=== PATIENT | female | born 1990 | race Caucasian/White ===

== ENCOUNTER 2022-12-23 16:48 | Outpatient (REF) | payer OTHER, SELFPAY ==
--- NOTE | ~2022-12-23 | US_ITS ---
EXAMINATION: US RETROPERITONEAL LIMITED (RENAL ONLY) CLINICAL INFORMATION: Acute cystitis. COMPARISON: None available. TECHNIQUE: Sonographic evaluation of both kidneys. FINDINGS: RIGHT KIDNEY: 13.1 x 5.8 x 7.4 cm (SAG x AP x TRV). The kidney is normal in size, contour, and echogenicity. Renal cortical thickness is normal. No calculi or focal parenchymal lesions. No hydronephrosis. LEFT KIDNEY: 12.4 x 5.8 x 5.5 cm (SAG x AP x TRV). The kidney is normal in size, contour, and echogenicity. Renal cortical thickness is normal. No calculi or focal parenchymal lesions. No hydronephrosis. US/US renal BI IMPRESSION: Normal appearance of the kidneys.
== END 2022-12-23 16:49 | disposition home or self-care (01) ==
LOC: HO.US 16:48
PROVIDERS: PCP Registered Nurse; Visit Provider Registered Nurse
DX: N30.00 Acute cystitis without hematuria (principal)
CPT/HCPCS: 76775

== ENCOUNTER 2023-06-30 11:50 | Outpatient (REF) | payer OTHER, SELFPAY ==
[2023-07-01 13:28] LABS: Influenza A PCR NEGATIVE (Negative); Influenza B PCR NEGATIVE (Negative); Resp Syncy Virus RNA Qual PCR NEGATIVE (Negative); SARS COV2 PCR INHOUSE NEGATIVE (Negative)
== END 2023-06-30 11:51 | disposition home or self-care (01) ==
LOC: HO.HHCLNP 11:50
PROVIDERS: Visit Provider Nurse Practitioner Family
DX: Z11.52 Encounter for screening for COVID-19 (principal); Z20.822 Contact with and (suspected) exposure to COVID-19; R05.9 Cough, unspecified
CPT/HCPCS: 0241U

== ENCOUNTER 2023-07-14 | Outpatient (REF) | payer OTHER, SELFPAY ==
[2023-07-15 12:42] LABS: Influenza A PCR NEGATIVE (Negative); Influenza B PCR NEGATIVE (Negative); Resp Syncy Virus RNA Qual PCR NEGATIVE (Negative); SARS COV2 PCR INHOUSE NEGATIVE (Negative)
== END 2023-07-14 00:01 | disposition home or self-care (01) ==
LOC: HO.HHCLNP
PROVIDERS: Visit Provider Nurse Practitioner Family
DX: Z11.52 Encounter for screening for COVID-19 (principal); Z20.822 Contact with and (suspected) exposure to COVID-19; R05.9 Cough, unspecified
CPT/HCPCS: 0241U; 87070

== ENCOUNTER 2024-09-07 10:44 | Outpatient (REF) | payer OTHER, SELFPAY ==
[2024-09-07 11:30] LABS: MANUAL DIFF FLAG NO
[2024-09-07 11:42] LABS: Basophils Percent Auto 0.4 % (0-2); Eosinophils Absolute Auto 0.1 X10*3/uL (0.0-0.4); Eosinophils Percent Auto 1.8 % (0-4); Hematocrit 39.6 % (37.0-47.0); Hemoglobin 12.7 g/dl (12.0-16.0); Imm Gran Abs Auto 0.02 X10*3/uL (0.00-0.03); Imm Gran Pct Auto 0.3 % (0.0-0.4); Lymphocytes Absolute Auto 2.5 X10*3/uL (1.2-4.9); Lymphocytes Percent Auto 35.6 % (20-40); Mean Corpuscular HGB Conc 32.1 g/dl (31.0-35.0); Mean Corpuscular Hemoglobin 26.3 pg (27.0-33.0); Mean Platelet Volume 9.5 fL (9.4-12.3); Monocytes Absolute Auto 0.4 X10*3/uL (0.1-1.2); Monocytes Percent Auto 5.6 % (2-11); Neutrophils Percent Auto 56.3 % (45-73); Platelet Count 425 X10*3/uL (160-400); Red Blood Count 4.83 X10*6/uL (4.20-5.50); Red Cell Distribution Width 15.5 % (11.0-16.0); White Blood Count 7.1 X10*3/uL (4.8-10.8)
[2024-09-07 11:50] LABS: Estimated Average Glucose 88 mg/dL; Hemoglobin A1C 93.3798 umol/L; Hemoglobin A1c % 4.7 % (<6.0); Total Hemoglobin (HGBA1C) 3357.3971 umol/L
[2024-09-07 12:27] LABS: Anion Gap 12 (12-20); Blood Urea Nitrogen 5 mg/dL (9-16); Calcium 9.2 mg/dL (8.4-10.2); Carbon Dioxide 26 mmol/L (22-29); Chloride 103 mmol/L (96-108); Cholesterol 168 mg/dL (<200); Estimated Glomerular Filt Rate > 60; Glucose Random 83 mg/dL (60-115); HDL Cholesterol 42 mg/dL (>40); LDL Cholesterol Calculated 111 mg/dL (<100); Potassium 3.9 mmol/L (3.3-5.1); Sodium 137 mmol/L (135-145); Triglycerides 76 mg/dL (<150)
[2024-09-07 12:43] LABS: HBS Num1 2.52 mIU/mL (0-7.99); HBc Num1 0.13 S/CO (0.00-0.79); HBsAGNum1 0.43 S/CO (0.00-0.99); Hepatitis B Core Antibody Nonreactive (Nonreactive); Hepatitis B Surface Antigen Negative (Negative); ~HepC Num1 0.08 S/CO (0.00-0.79); ~Hepatitis B Surface Antibody NONREACTIVE (Nonreactive); ~Hepatitis C Antibody Nonreactive (Nonreactive)
--- OUTSIDE RECORDS SUMMARY | 2024-09-07 12:49 | XMS_ITS | Encounter Summary ---
Author Organization [employer] Address [address] [place] [address] 7t [place] [address] Care Team Providers Care Rn Family Practice Name Role Phone Aniyah Schulte Primary Care Provider [phone] Maria Beckham MD Primary Care Pro vider Daisy Clark NP Primary Care Provider [phone] Urszula Muñiz DOCUMENT CONTROL MANAGER Primary Care Provider [phone] Reason for Visit * Reason Comments Med Refill Encounter Details Date Type Department Care Team ([facility] Contact Info) Description 03/20/2023 Refill [facility] [address] [place] [address] Aniyah Schulte [address] Dept [place] [address] Moderate episode of recurrent major depressive disorder (CMS/HCC) Social History Tobacco Use Types Packs/Day Years Used Date Smoking Tobacco: Some Days Cigarettes Passive Smoke Exposure: Current Smokeless Tobacco: Never Comments:Smokes 1 cig every other day. Alcohol Use Standard Drinks/Week Comments Yes 0 (1 standard drink = 0.6 oz pur e alcohol) Socially Depression Answer Date Recorded Patient Health Questionnaire-9 Score 6 02/09/2023 Depression Answer Date Recorded Patient Health Questionnaire-2 Score 0 02/09/2023 Comments Unknown Sex and Gender Information Value Date Recorded Sex Assigned at Female 06/09/2022 10:40 AM EDT Legal Sex Female 10:40 AM EDT Gender Identity Choose not to disclose 10:40 AM EDT Sexual Orientation Straight 06/09/2022 10 :40 AM EDT documented as of this encounter Plan of Treatment Upcoming Encounters Date Type Department Care Team ([facility] Contact Info) Description 09/14/2024 10:00 AM EST Office Visit [facility] MEDIC[facility] [address] [place] [address] Urszula Muñiz FNP [address] [place] [address] documented as of this encounter Visit Diagnoses Diagnosis Moderate episode of recurrent major depressive disorder (CMS/HCC) documented in this encounter Additional Health Concerns Assessment Noted Time PHQ-9 Depression Total Score: 6 02/10/20 23 3:31 PM EDT documented as of this encounter Care Teams Rn Family Practice Relationship Specialty Start Date End Date Aniyah Schulte FNP PCP - General Family Medicine 11/29/21 05/13/23 Maria Beckham MD [address] [place] [address] PCP - General Internal Medicine 05/14/23 05/03/24 Daisy Clark NP [address] [place] [address] PCP - General Family Medicine 05/04/24 08/25/24 Urszula Muñiz FNP [address] [place] [address] PCP - General Family Medicine 08/26/24 documented as of this encounter
--- OUTSIDE RECORDS SUMMARY | 2024-09-07 12:49 | XMS_ITS | Encounter Summary ---
Author Organization [employer] Address [address] [place] [address] [place] [address] Care Team Providers Care Nurse Emergency Room Name Role Phone Aniyah Schulte MATHEMATICAL PHYSICIST Primary Care Provider [phone] Maria Beckham MD Primary Care Pro vider Daisy Clark NP Primary Care Provider [phone] Urszula Muñiz MATHEMATICAL PHYSICIST Primary Care Provider [phone] Reason for Visit * Reason Comments Med Refill Encounter Details Date Type Department Care Team (Late st Contact Info) Description 02/05/2023 Refill [facility] MED[facility] [address] [place] [address] Aniyah Schulte [address] Dept [place] [address] Seasonal allergic rhinitis, unspecified trigger; Moderate episode of recurrent major depressive disorder [...] Orientation Straight 06/09/2022 10 :40 AM EDT COVID-19 Exposure Response Date Recorded In the last 10 days, have yo u been in contact with someone who was confirmed or suspected to have Coronavirus/COVID-19? No / Unsure 01/09/2023 3:37 PM EDT documented as of this encounter Plan of Treatment Upcoming Encounters Date Type Department Care Team (Late st Contact Info) Description 09/14/2024 10:00 AM EST Office Visit [facility] MED[facility]INE [address] [place] [address] Urszula Muñiz FNP [address] [place] [address] documented as of this encounter Visit Diagnoses Diagnosis Seasonal allergic rhinitis, unspecified trigger Moderate episode of recurrent major depressive disorder (CMS/HCC) documented in this encounter Care Teams Nurse Emergency Room Relationship Specialty Start Date End Date Aniyah Schulte FNP PCP - General Family Medicine 11/29/21 05/13/23 Maria Beckham MD [address] [place] [address] PCP - General Internal Medicine 05/14/23 05/03/24 Daisy Clark NP [address] [place] [address] PCP - General Family Medicine 05/04/24 08/25/24 Urszula Muñiz FNP [address] [place] [address] PCP - General Family Medicine 08/26/24 documented as of this encounter
--- OUTSIDE RECORDS SUMMARY | 2024-09-07 12:49 | XMS_ITS | Clinical Summary ---
Author Organization [facility] Facility Address [address] [address] Care Team Providers Care Manager House Name Role Phone Aniyah Davidson Primary Care Provider Ramandeep vailable Social History Tobacco Use Types Packs/Day Years Used Date Smoking Tobacco: Never Assessed Comments Unknown Sex and Gender Information Value Date Recorded Sex Assigned at Not on file Legal Sex Female 3:14 PM EST Gender Identity Not on file Sexual Orientation Not on file Plan of Treatment Health Maintenance Due Date Last Done Comments Hepatitis B Vaccine (1 of 3 - 19+ 3-dose series) 12/31/2006 Influenza Vaccine (#1) 2024 Pneumococcal Vaccine: Pediat rics (0 to 5 Years) and At-Risk Patients (6 to 64 Years) Aged Out No longer eligi ble based on patient's age to complete this topic Care Teams Manager House Relationship Specialty Start Date End Date Aniyah Davidson FNP PCP - General 06/18/23
--- OUTSIDE RECORDS SUMMARY | 2024-09-07 12:49 | XMS_ITS | Encounter Summary ---
Author Organization [facility], Address [address] [place] [address] Phone Care Team Providers Care Clinical Implementation Specialist Name Role Phone Aniyah Davidson Primary Care Provider Ramandeep vailable Encounter Details Date Type Department Care Team (Late st Contact Info) Description 06/19/2023 Documentation Only [facility], [address] [place] [address] Aniyah Davidson FNP Social History Tobacco Use Types Packs/Day Years Used Date Smoking Tobacco: Never Assessed Comments Unknown Sex and Gender Information Value Date Recorded Sex Assigned at Not on file Legal Sex Female 3:14 PM EST Gender Identity Not on file Sexual Orientation Not on file documented as of this encounter Plan of Treatment Not on file documented as of this encounter Visit Diagnoses Not on filedocumented in this encounter Care Teams Clinical Implementation Specialist Relationship Specialty Start Date End Date Aniyah Davidson FNP PCP - General 06/18/23 documented as of this encounter
--- OUTSIDE RECORDS SUMMARY | 2024-09-07 12:49 | XMS_ITS | Encounter Summary ---
Author Organization [employer] Address [address] [facility] 7t [place] [address] Care Team Providers Care Supervisor Model Making Name Role Phone Aniyah Schulte ORGANIC LAB WORKER Primary Care Provider [phone] Maria Beckham MD Primary Care Pro vider Daisy Clark NP Primary Care Provider [phone] Urszula Muñiz ORGANIC LAB WORKER Primary Care Provider [phone] Reason for Visit * Reason Comments Med Refill Encounter Details Date Type Department Care Team (Late st Contact Info) Description 02/05/2023 Refill [facility] [address] [place] [address] Fabrice Park MD [address] [place] [address] Social History Tobacco Use Types Packs/Day Years [...] Description 09/14/2024 10:00 AM EST Office Visit [facility] [address] [place] [address] Urszula Muñiz FNP [address] [place] [address] documented as of this encounter Visit Diagnoses Not on filedocumented in this encounter Care Teams Supervisor Model Making Relationship Specialty Start Date End Date Aniyah Schulte FNP PCP - General Family Medicine 11/29/21 05/13/23 Maria Beckham MD [address] [place] [address] PCP - General Internal Medicine 05/14/23 05/03/24 Daisy Clark NP [address] [place] [address] PCP - General Family Medicine 05/04/24 08/25/24 Urszula Muñiz FNP [address] [place] [address] PCP - General Family Medicine 08/26/24 documented as of this encounter
--- OUTSIDE RECORDS SUMMARY | 2024-09-07 12:49 | XMS_ITS | Encounter Summary ---
Author Organization [employer] Address [address] [facility] 7 [place] [address] Care Team Providers Care Direct Mail Marketer Name Role Phone Aniyah Schulte Primary Care Provider [phone] Maria Beckham MD Primary Care Pro vider Daisy Clark NP Primary Care Provider [phone] Urszula Muñiz INTEGRATED LOGISTICS PROGRAMS DIRECTOR Primary Care Provider [phone] Reason for Visit * Reason Onset Date Comments Medication Question 03/24/2023 Encounter Details Date Type Department Care Team (Late st Contact Info) Description 03/24/2023 Telephone [facility] MED[facility] [address] [place] [address] Aniyah Schulte [address] Dept [place] [address] Medication Question Social History Tobacco Use Types Packs/Day Years Used Date Smoking Tobacco: Some Days Cigarettes Passive Smoke Exposure: Current Smokeless Tobacco: Never Comments:Smokes 1 cig every other day. Alcohol Use Standard Drinks/Week Comments Yes 0 (1 standard drink = 0.6 oz pur e alcohol) Socially Depression Answer Date Recorded Patient Health Questionnaire-9 Score 6 02/09/2023 Housing Stability Answer Date Recorded What is your housing situation today? I have yolandemarkie quintana 06/12/[address] you li ve. Do you have problems with any of the following? None of the above 06/12/2023 Food Insecurity Answer Date Recorded Within the past 12 months, y ou worried that your food would run out before you got money to buy more: Never True 06/12/2023 Within the past 12 months,th e food you bought just didn't last and you didn't have enough money to get more: Never True 10/2022 Transportation Answer Date Recorded In the past 12 months, has l ack of transportation kept you from medical appts, meetings, work or from getting things needed for daily living? No 06/12/2023 Utilities Answer Date Recorded In the past 12 months, has t he electric, gas, oil or water company threatened to shut off services in your home? Yes 05/19/2023 Depression Answer Date Recorded Patient Health Questionnaire-2 Score 0 02/09/2023 Comments Unknown Sex and Gender Information Value Date Recorded Sex Assigned at Female 06/09/2022 10:40 AM EDT Legal Sex Female 10:40 AM EDT Gender Identity Choose not to disclose 10:40 AM EDT Sexual Orientation Straight 06/09/2022 10 :40 AM EDT documented as of this encounter Miscellaneous Notes * Telephone Encounter - Marci Parker RN - 03/27/2023 10:31 AM EDT TC X1 to pt regarding message below. LVM to return call to nurses. * Telephone Encounter - Santy Morales - 03/24/2023 8:27 AM EDT Tc from aren at [facility] pharmacy calling in regards to lexapro 10 mg and hydroxyzine 50 mg , states can cause a med interaction and would like clarification. Please contact at [phone] documented in this encounter Plan of Treatment Upcoming Encounters Date Type Department Care Team (Late st Contact Info) Description 09/14/2024 10:00 AM EST Office Visit [facility] MEDIC[facility] [address] [place], [place] [phone] Urszula Muñiz FNP [address] [place] [address] documented as of this encounter Visit Diagnoses Not on filedocumented in this encounter Additional Health Concerns Assessment Noted Time PHQ-9 Depression Total Score: 6 02/10/20 23 3:31 PM EDT documented as of this encounter Care Teams Direct Mail Marketer Relationship Specialty Start Date End Date Aniyah Schulte FNP PCP - General Family Medicine 11/29/21 05/13/23 Maria Beckham MD [address] [place] [address] PCP - General Internal Medicine 05/14/23 05/03/24 Daisy Clark NP [address] [place] [address] PCP - General Family Medicine 05/04/24 08/25/24 Urszula Muñiz FNP [address] [place] [address] PCP - General Family Medicine 08/26/24 documented as of this encounter
--- OUTSIDE RECORDS SUMMARY | 2024-09-07 12:50 | XMS_ITS | Encounter Summary ---
Author Organization [employer] Address [address] [facility] 7t [place] [address] Care Team Providers Care Green Lumber Grader Name Role Phone Urszula Muñiz Primary Care Provider Reason for Referral * Consultation (Routine) - Pending Review Specialty Diagnoses / Procedures Referred By Jessie reynoso Referred To Contact Optometry Diagnoses Well adult health check Urszula Muñiz FNP [address] [place] [address] Phone: tel: fax: Referral ID Status Reason Start Date Expiration Date Visits Requested Visits Authorized [id number] Pending Review Specialty Services Required 09/07/2024 09/07/2025 1 1 Reason for Visit * Reason Comments Establish Care Encounter Details Date Type Department Care Team ([facility] st Contact Info) Description 09/07/2024 9:15 AM EST Office Visit [facility] [address] [place] [address] Urszula Muñiz FNP [address] [place] [address] [facility] adult health check (Primary Dx); Hypertension, unspecified type; Unprotected sexual intercourse Social History Tobacco Use Types Packs/Day Years Used Date Smoking Tobacco: Some Days Cigarettes Passive Smoke Exposure: Current Smokeless Tobacco: Never Tobacco Cessation:Ready to Q uit: Not Asked; Counseling Given: Not Answered Comments:Smokes 1 cig every other day. Alcohol Use Standard Drinks/Week Comments Yes 0 (1 standard drink = 0.6 oz pur e alcohol) Socially Depression Answer Date Recorded Patient Health Questionnaire-9 Score 4 09/07/2024 Patient Health Questionnaire-9 Score 4 09/07/2024 Last PHQ-9: Questionnaire Data Not on file 0 09/07/2024 Housing Stability Answer Date Recorded What is your housing situation today? I have yolande quitnana 09/07/[address] you li ve. Do you have problems with any of the following? None of the above 09/07/2024 Food Insecurity Answer Date Recorded Within the past 12 months, y ou worried that your food would run out before you got money to buy more: Never True 09/07/2024 Within the past 12 months,th e food you bought just didn't last and you didn't have enough money to get more: Never True Transportation Answer Date Recorded In the past 12 months, has l ack of transportation kept you from medical appts, meetings, work or from getting things needed for daily living? No 09/07/2024 Utilities Answer Date Recorded In the past 12 months, has t he electric, gas, oil or water company threatened to shut off services in your home? No 09/07/2024 Depression Answer Date Recorded Patient Health Questionnaire-2 Score 2 09/07/2024 Comments Unknown Sex and Gender Information Value Date Recorded Sex Assigned at Female 06/09/2022 10:40 AM EDT Legal Sex Female 10:40 AM EDT Gender Identity Choose not to disclose 10:40 AM EDT Sexual Orientation Straight 06/09/2022 10 :40 AM EDT documented as of this encounter Last Filed Vital Signs Vital Sign Reading Time Taken Comments Blood Pressure 160/112 09/07/2024 9:13 AM EST Pulse 76 09/07/2024 9:13 AM EST Temperature 36.2 ??C (97.1 ??F) 09/07/2024 9:07 AM ES T Respiratory Rate 20 09/07/2024 9:07 AM EST Oxygen Saturation 98% 09/07/2024 9:07 AM EST Inhaled Oxygen Concentration - - Weight 128 kg (281 lb 12.8 oz) 09/07/2024 9:07 A M EST Height 170.2 cm (5' 7 ) 09/07/2024 9:07 AM EST Body Mass Index 44.14 09/07/2024 9:07 AM EST documented in this encounter Plan of Treatment Upcoming Encounters Date Type Department Care Team (Late st Contact Info) Description 09/14/2024 10:00 AM EST Office Visit [facility] [address] [place] [address] Urszula Muñiz FNP [address] [place] [address] Pending Results Name Type Priority Associated Diagnoses Date /Time Lipid Panel, Standard Lab Routine Well adult health check 09/07/2024 10:46 AM EST Basic Metabolic Panel Lab Routine Well adult health check 09/07/2024 10:46 AM EST Scheduled Orders Name Type Priority Associated Diagnoses Orde r Schedule Chlamydia/N. Gonorrhoeae RNA, TMA, Urogenitial Microbiology Routine Well adult health check Ordered: 09/07/2024 Hepatitis C Antibody with Reflex to HCV, RNA, Quantitative, Real-Time PCR Lab Routine Well adult health check Expected: 09/07/2024, Expires: 09/07/2025 Hepatitis B Surface Antibody, Qualitative Lab Routine [facility] adult health check Expected: 09/07/2024 (Approximate), Expires: 09/07/2025 Hepatitis B Core Antibody, Total Lab Routine Well adult health check Expected: 09/07/2024 (Approximate), Expires: 09/07/2025 Hepatitis B surface antigen, EIA Lab Routine Well adult health check Expected: 09/07/2024 (Approximate), Expires: 09/07/2025 TSH W/Reflex to FT4 Lab Routine Well adult health check Expected: 09/07/2024 (Approximate), Expires: 09/07/2025 Scheduled Referrals Name Type Priority Associated Diagnoses Orde r Schedule Referral to Optometry Outpatient Referral Routine Well adult health check Expected: 09/07/2024 (Approximate), Expires: 09/07/2025 documented as of this encounter Procedures Procedure Name Priority Date/Time Associated Diagnosis Comments POCT , URINE Routine 09/07/2024 11:15 AM EST Unprotected sexual intercourse POCT URINALYSIS DIPSTICK Routine 09/07/2024 11:11 AM EST Hypertension, unspecified type CBC WITH AUTO DIFFERENTIAL Routine 09/07/2024 10:46 AM EST Well adult health check HEMOGLOBIN A1C Routine 09/07/2024 10:46 AM EST Well adult health check LIPID PANEL, STANDARD Routine 09/07/2024 10:46 AM EST Well adult health check BASIC METABOLIC PANEL Routine 09/07/2024 10:46 AM EST Well adult health check documented in this encounter Results * POCT Urine (09/07/2024 11:15 AM EST) Preg Test, Ur Negative Negative, Indeterminate, None Detected, Invalid, Specimen unsatisfactory for evaluation, Weakly Positive QC Media Lot # [id number] Lot# Expiration Date [id number] Urine 09/07/2024 11:1 5 AM EST [facility] POINT OF CARE TEST ENTER/EDIT ORDERABLES Final Result * POCT Urinalysis (09/07/2024 11:11 AM EST) Color, UA Yellow Clarity, UA Clear Glucose, UA Negative Bilirubin, UA Negative Ketones, UA Negative Spec Grav, UA 1.020 Blood, UA Negative Negative, None Detected pH, UA 7.0 Protein, UA Trace Urobilinogen, UA 0.2 Leukocytes, UA Negative Negative, Rare, Trace Nitrite, UA Negative Negative, None Detected QC Media Lot # [id number] Lot# Expiration Date [id number] Urine 09/07/2024 11:1 1 AM EST [facility] POINT OF CARE TEST ENTER/EDIT ORDERABLES Final Result * Hemoglobin A1c (09/07/2024 10:46 AM EST) Hemoglobin A1c 4.7 <6.0 % [facility] Comment:Hemoglobin A1C Refer ence Range Adults: 4.8 - 6.0 % Non diabetic: < 6.0 % Goal: < 7.0 %Additional Action Suggested: > 8.0 %Note: Hemoglobin A1c results are invalid for patients with abnormal amounts of HbF. Blood transfusions may impact the HbA1c concentration in the patient sample. Estimated Average Glucose 88 mg/dL [facility] Comment:eAG = Estimated ave rage glucose which is %A1C expressed asaverage glucose, using the formula of the B9E-GcyxstnOmptbmr Glucose study (ADAG), Diabetes Care, Vol.31,#8,Mar. 2007 Blood Venous blood specimen / Unknown 09/07/2024 10:46 AM EST 09/07/2024 11:25 AM EST us Urszula Muñiz STRAIGHT TRUCK DRIVER LAB BLOOD ORDERABLES Final Res ult [facility] [address] [place], [place] [phone] * (ABNORMAL) CBC auto differential (09/07/2024 10:46 AM EST) White Blood Count 7.1 4.8 - 10.8 X10*3/uL [facility] Red Blood Count 4.83 4.20 - 5.50 X10*6/uL [facility] Hemoglobin 12.7 12.0 - 16.0 g/dl [facility] Hematocrit 39.6 37.0 - 47.0 % [facility] Mean Corpuscular Volume 82.0 80.0 - 98.0 fL [facility] Mean Corpuscular Hemoglobin 26.3(L) 27.0 - 33.0 pg [facility] Mean Corpuscular HGB Conc 32.1 31.0 - 35.0 g/dl [facility] Red Cell Distribution Width 15.5 11.0 - 16.0 % [facility] Platelet Count 425(H) 160 - 400 X10*3/uL [facility] Mean Platelet Volume 9.5 9.4 - 12.3 fL [facility] Neutrophils Percent Auto 56.3 45 - 73 % [facility] Imm Gran Pct Auto 0.3 0.0 - 0.4 % [facility] Lymphocytes Percent Auto 35.6 20 - 40 % [facility] Monocytes Percent Auto 5.6 2 - 11 % [facility] Eosinophils Percent Auto 1.8 0 - 4 % [facility] Basophils Percent Auto 0.4 0 - 2 % [facility] NRBC Pct Auto 0.0 0.0 - 0.2 /100WBC [facility] Neutrophils Absolute Auto 4.0 2.0 - 8.3 x10*3/uL [facility] Imm Gran Abs Auto 0.02 0.00 - 0.03 X10*3/uL [facility] Lymphocytes Absolute Auto 2.5 1.2 - 4.9 X10*3/uL [facility] Monocytes Absolute Auto 0.4 0.1 - 1.2 X10*3/uL [facility] Eosinophils Absolute Auto 0.1 0.0 - 0.4 X10*3/uL [facility] Basophils Absolute Auto 0.0 0.0 - 0.2 X10*3/uL [facility] NRBC Abs Auto 0.000 0.0 - 0.012 X10*3/uL [facility] Blood Venous blood specimen / Unknown 09/07/2024 10:46 AM EST 09/07/2024 11:25 AM EST Urszula REILLY LAB BLOOD ORDERABLES Final Res ult Performing Organization Address City/State/[facility] Co de Phone Number [facility] [address] [place] [address] [phone] documented in this encounter Visit Diagnoses Diagnosis Well adult health check- Primary Unspecified general medical examination Hypertension, unspecified type Unprotected sexual intercourse Problems related to high-risk sexual behavior documented in this encounter Additional Health Concerns Assessment Noted Time PHQ-9 Depression Total Score: 4 09/07/19 25 9:14 AM EST documented as of this encounter Care Teams Green Lumber Grader Relationship Specialty Start Date End Date Urszula Muñiz FNP [address] [place] [phone] PCP - General Family Medicine 08/26/24 documented as of this encounter
--- OUTSIDE RECORDS SUMMARY | 2024-09-07 12:50 | XMS_ITS | Encounter Summary ---
Author Organization [email or web address] Address [address] [facility] 7t [place] [address] Care Team Providers Care Travel Attendants Name Role Phone Aniyah Schulte STONE POLISHER MACHINE Primary Care Provider [phone] Maria Beckham MD Primary Care Pro vider Daisy Clark NP Primary Care Provider +- Urszula Muñiz STONE POLISHER MACHINE Primary Care Provider [phone] Encounter Details Date Type Department Care Team ([facility] Contact Info) Description 07/28/2022 Orders Only [facility] [address] [place] [address] Ara Batista LPN Social History Tobacco Use Types Packs/Day Years [...] was confirmed or suspected to have Coronavirus/COVID-19? Yes 07/14/2022 3:20 PM EST documented as of this encounter Plan of Treatment Upcoming Encounters Date Type Department Care Team ([facility] Contact Info) Description 09/14/2024 10:00 AM EST Office Visit [facility] MEDICINE [address] [place] [address] Urszula Muñiz FNP [address] [place], [place] [phone] documented as of this encounter Visit Diagnoses Not on filedocumented in this encounter Care Teams Travel Attendants Relationship Specialty Start Date End Date Aniyah Schulte FNP PCP - General Family Medicine 11/29/21 05/13/23 Maria Beckham MD [address] [place] [address] PCP - General Internal Medicine 05/14/23 05/03/24 Daisy Clark NP [address] [place] [address] PCP - General Family Medicine 05/04/24 08/25/24 Urszula Muñiz FNP [address] [place] [address] PCP - General Family Medicine 08/26/24 documented as of this encounter
--- OUTSIDE RECORDS SUMMARY | 2024-09-07 12:50 | XMS_ITS | Encounter Summary ---
Author Organization [employer] Address [address] [facility] 7t [place] [address] Care Team Providers Care Cardiac Surgeon Name Role Phone Aniyah Schulte LABORATORY HELPER Primary Care Provider [phone] Maria Beckham MD Primary Care Pro vider Daisy Clark NP Primary Care Provider [phone] Urszula Muñiz LABORATORY HELPER Primary Care Provider [phone] Reason for Visit * Reason Comments Med Refill Encounter Details Date Type Department Care Team ([facility] Contact Info) Description 12/15/2022 Refill [facility] [address] [place] [address] Lelo Black, ANP [address] [place] [address] Social History Tobacco Use Types Packs/Day Years Used Date Smoking Tobacco: Some Days Cigarettes Passive Smoke Exposure: Current Smokeless Tobacco: Never Alcohol Use Standard Drinks/Week Comments Yes 0 (1 standard drink = 0.6 oz pur e alcohol) Socially Comments Unknown Sex and Gender Information Value [...] suspected to have Coronavirus/COVID-19? No / Unsure 12/16/2022 5:49 PM EDT documented as of this encounter Plan of Treatment Upcoming Encounters Date Type Department Care Team ([facility] Contact Info) Description 09/14/2024 10:00 AM EST Office Visit [facility] MEDICINE [address] [place] [address] Urszula Muñiz FNP [address] [place] [address] documented as of this encounter Visit Diagnoses Not on filedocumented in this encounter Care Teams Cardiac Surgeon Relationship Specialty Start Date End Date Aniyah Schulte FNP PCP - General Family Medicine 11/29/21 05/13/23 Maria Beckham MD [address] [place] [address] PCP - General Internal Medicine 05/14/23 05/03/24 Daisy [place] [address] PCP - General Family Medicine 05/04/24 08/25/24 Urszula Muñiz FNP [address] [place] [address] PCP - General Family Medicine 08/26/24 documented as of this encounter
--- OUTSIDE RECORDS SUMMARY | 2024-09-07 12:50 | XMS_ITS | Encounter Summary ---
Author Organization [employer] Address [address] [facility] [address] 7[address] [place] [address] Care Team Providers Care Dethistler Operator Name Role Phone Urszula Muñiz INSTRUCTOR PHYSICAL Primary Care Provider [phone] Reason for Visit * Reason Onset Date Comments Chart Prep 09/01/2024 Encounter Details Date Type Department Care Team (Late st Contact Info) Description 09/01/2024 Telephone [facility] MEDICINE [address] [place] [address] Manasa Tapia MA Chart Prep Social History Tobacco Use Types Packs/Day Years [...] your housing situation today? I have yolande quintana 06/12/[address] you [...] encounter Miscellaneous Notes * Telephone Encounter - Manasa Tapia MA - 09/01/2024 3:05 PM EST Chart Prep Labs: done Images: not done Vaccines due: Covid Due, Tdap Due, Hep B Due, PCV20 Due, and Flu Due Referrals: Not Applicable Screenings: Cervical cancer, Hep C Overdue care gaps: Sbirt, SDOH, PHQ-9, and Oral Health documented in this encounter Plan of Treatment Upcoming Encounters Date Type Department Care Team (Late st Contact Info) Description 09/14/2024 10:00 AM EST Office Visit [facility] MEDICINE [address] [place] [address] Urszula Muñiz FNP [address] [place] [address] documented as of this encounter Visit Diagnoses Not on filedocumented in this encounter Additional Health Concerns Assessment Noted Time PHQ-9 Depression Total Score: 6 02/10/20 23 3:31 PM EDT documented as of this encounter Care Teams Dethistler Operator Relationship Specialty Start Date End Date Urszula Muñiz FNP [address] [place] [address] PCP - General Family Medicine 08/26/24 documented as of this encounter
--- OUTSIDE RECORDS SUMMARY | 2024-09-07 12:50 | XMS_ITS | Encounter Summary ---
Author Organization [employer] Address 75 [facility] 7t [place] [address] Care Team Providers Care Retention Manager Name Role Phone Daiys Clark NP Primary Care Provider [phone] Urszula Muñiz PSYCHIATRIC ATTENDANT Primary Care Provider [phone] Reason for Visit * Reason Onset Date Comments Med Refill 08/25/2024 Medication Question 08/25/2024 Encounter Details Date Type Department Care Team ([facility] st Contact Info) Description 08/25/2024 Refill [facility] MEDICINE [address] [place] [address] Daisy Clark NP [address] [place] [address] Right flank pain; Essential hypertension; Anxiety Social History Tobacco Use Types Packs/Day Years [...] encounter Miscellaneous Notes * Telephone Encounter - Celia Santo RN - 08/26/2024 3:20 PM EST TC placed to pt regarding medication refill request. Pt states she has been purchasing OTC acetaminophen and ibuprofen, but doesn't have money which is why she needs a refill. Pt states she is out ofthe following medications, hydroCHLOROthiazide (HYDRODiuril) 25 MG tablet, hydrOXYzine HCl (Atarax)50 MG tablet, acetaminophen (Tylenol 8 Hour) 650 MG ER tablet, and clotrimazole (Lotrimin) 1 % cream. Pt reports she was evicted and believes she left her hydroCHLOROthiazide (HYDRODiuril) 25 MG tablet as she does not have it. Pt reports she has not had hydrochlorothiazide for 2 weeks. Pt states Itake the tylenol for kidney stones as I was having frequent visits to the ED so that's why it was prescribed . Pt takes hydrOXYzine HCl (Atarax) 50 MG tablet as prescribed for anxiety and reports mymind won't stop and let me rest when she does not take medication. Pt reports she has larger breasts and uses the clotrimazole (Lotrimin) 1 % cream underneath so she doesn't tear. Pt booked for TP appointment on 09/07/24 at 9:15 AM with Urszula Muñiz. Pt strongly encouraged to attend appointment soshe can be evaluated and get medications. Message forwarded to provider for review regarding requested medications. * Telephone Encounter - Jessica Weston - 08/26/2024 2:29 PM EST Tc from pt stating she can't be without medication two weeks. * Telephone Encounter - Ara Batista LPN - 08/25/2024 2:45 PM EST Medication not pended please review and advise. Patient last seen 07/14/23, no show on 06/17/24 and expected 09/16/24. Thank you. * Telephone Encounter - Sage Ellison - 08/25/2024 2:36 PM EST Tc from pt requesting refills for her medicartion. Pt states that she needs these medication and wont be able to wait till Apt Date. hydroCHLOROthiazide (HYDRODiuril) 25 MG tablet hydrOXYzine HCl (Atarax) 50 MG tablet buPROPion XL (Wellbutrin XL) 300 MG 24 hr tablet escitalopram (Lexapro) 10 MG tablet NIFEdipine XL (Procardia XL) 30 MG 24 hr tablet cetirizine (ZyrTEC) 10 MG tablet clotrimazole (Lotrimin) 1 % cream acetaminophen (Tylenol 8 Hour) 650 MG ER tablet ibuprofen 800 MG tablet Pt would like for These medication to be refilled and Sent to [facility]/pharmacy #[id number] [place] [address] As Soon as Possible. If any questions Contact pt at [phone] documented in this encounter Plan of Treatment Upcoming Encounters Date Type Department Care Team (Late st Contact Info) Description 09/14/2024 10:00 AM EST Office Visit [facility] MEDICINE [address] [place] [address] Urszula Muñiz FNP [address] [place], [place] [phone] documented as of this encounter Visit Diagnoses Diagnosis Right flank pain Abdominal pain, unspecified site Essential hypertension Unspecified essential hypertension Anxiety Anxiety state, unspecified documented in this encounter Additional Health Concerns Assessment Noted Time PHQ-9 Depression Total Score: 6 02/10/20 23 3:31 PM EDT documented as of this encounter Care Teams Retention Manager Relationship Specialty Start Date End Date Daisy Clark NP [address] [place] [address] PCP - General Family Medicine 05/04/24 08/25/24 Urszula Muñiz FNP [address] [place] [address] PCP - General Family Medicine 08/26/24 documented as of this encounter
--- OUTSIDE RECORDS SUMMARY | 2024-09-07 12:50 | XMS_ITS | Encounter Summary ---
Author Organization [employer] Address [address] [place] [address] Care Team Providers Care Rn Progressive Care Unit Name Role Phone Aniyah Schulte Primary Care Provider [phone] Maria Beckham MD Primary Care Pro vider Daisy Clark NP Primary Care Provider [phone] Urszula Muñiz SOAKER MEAT Primary Care Provider [phone] Reason for Visit * Reason Onset Date Comments Letter for School/Work 12/31/2022 Encounter Details Date Type Department Care Team (Late st Contact Info) Description 12/31/2022 Telephone [facility] MED[facility] [address] [place] [address] Aniyah Schulte FNP [address] [place] [address] Dept of [place] [address] Letter for School/Work Social History Tobacco Use Types Packs/Day Years [...] suspected to have Coronavirus/COVID-19? No / Unsure 2023 3:12 PM EDT documented as of this encounter Miscellaneous Notes * Telephone Encounter - Janeth Cook - 12/31/2022 1:29 PM EDT Tc from pt requesting if work letter can be extended. Please call pt to clarify. documented in this encounter Plan of Treatment Upcoming Encounters Date Type Department Care Team (Late st Contact Info) Description 09/14/2024 10:00 AM EST Office Visit [facility] MEDICINE [address] [place] [address] Urszula Muñiz FNP [address] [place] [address] documented as of this encounter Visit Diagnoses Not on filedocumented in this encounter Care Teams Rn Progressive Care Unit Relationship Specialty Start Date End Date Aniyah Schulte FNP PCP - General Family Medicine 11/29/21 05/13/23 Maria Beckham MD [address] [place] [address] PCP - General Internal Medicine 05/14/23 05/03/24 Daisy Clark NP [address] [place] [address] PCP - General Family Medicine 05/04/24 08/25/24 Urszula Muñiz FNP [address] [place] [address] PCP - General Family Medicine 08/26/24 documented as of this encounter
--- OUTSIDE RECORDS SUMMARY | 2024-09-07 12:50 | XMS_ITS | Encounter Summary ---
Author Organization [employer] Address [address] [facility] 7t [place] [address] Care Team Providers Care Compliance Field Technician Name Role Phone Aniyah Schulte Primary Care Provider [phone] Maria Beckham MD Primary Care Pro vider Daisy Clark NP Primary Care Provider [phone] Urszula Muñiz LEGAL SERVICES PROFESSIONAL Primary Care Provider [phone] Reason for Visit * Reason Comments Med Refill Encounter Details Date Type Department Care Team (Late Contact Info) Description 01/20/2023 Refill [facility] [address] [place] [address] Aniyah Schulte [address] Dept of [place] [address] Right flank pain Social History Tobacco Use Types Packs/Day Years [...] Encounters Date Type Department Care Team (Late Contact Info) Description 09/14/2024 10:00 AM EST Office Visit [facility] MEDICINE [address] [place] [address] Urszula Muñiz FNP [address] [place] [address] documented as of this encounter Visit Diagnoses Diagnosis Right flank pain Abdominal pain, unspecified site documented in this encounter Care Teams Compliance Field Technician Relationship Specialty Start Date End Date Aniyah Schulte FNP PCP - General Family Medicine 11/29/21 05/13/23 Maria Beckham MD [address] [place] [address] PCP - General Internal Medicine 05/14/23 05/03/24 Daisy Clark NP [address] [place] [address] PCP - General Family Medicine 05/04/24 08/25/24 Urszula Muñiz FNP [address] [place] [address] PCP - General Family Medicine 08/26/24 documented as of this encounter
--- OUTSIDE RECORDS SUMMARY | 2024-09-07 12:50 | XMS_ITS | Encounter Summary ---
Author Organization [employer] Address [address] [facility] 7t [place] [address] Care Team Providers Care Dining Room Busser Name Role Phone Urszula Muñiz SUBSTATION OPERATOR TRANSFORMING Primary Care Provider [phone] Encounter Details Date Type Department Care Team (Latest Contact Info) Description 09/07/2024 Travel Social History Tobacco Use Types Packs/Day Years [...] housing situation today? I have yolande quintana 09/07/[address] you li [...] Description 09/14/2024 10:00 AM EST Office Visit [facility] MEDICINE [address] [place] [address] Urszula Muñiz FNP [address] [place] [address] documented as of this encounter Visit Diagnoses Not on filedocumented in this encounter Additional Health Concerns Assessment Noted Time PHQ-9 Depression Total Score: 4 09/07/19 25 9:14 AM EST documented as of this encounter Care Teams Dining Room Busser Relationship Specialty Start Date End Date Urszula Muñiz FNP [address] [place] [address] PCP - General Family Medicine 08/26/24 documented as of this encounter
--- OUTSIDE RECORDS SUMMARY | 2024-09-07 12:50 | XMS_ITS | Encounter Summary ---
Author Organization [employer] Address [address] [place] [address] Care Team Providers Care Light Bulb Replacer Name Role Phone Aniyah Schulte Primary Care Provider [phone] Maria Beckham MD Primary Care Pro vider Daisy Clark NP Primary Care Provider [phone] Urszula Muñiz Primary Care Provider [phone] Reason for Visit * Reason Comments Med Refill Encounter Details Date Type Department Care Team ([facility] Contact Info) Description 07/13/2022 Refill [facility] MEDICINE [address] [place] [address] Aniyah Schulte FNP [address] [place] [address] Dept [place] [address] Social History Tobacco Use Types Packs/Day Years [...] Upcoming Encounters Date Type Department Care Team ([facility] Contact Info) Description 09/14/2024 10:00 AM EST Office Visit [facility] MEDICINE [address] [place] [address] Urszula Muñiz FNP [address] [place] [address] documented as of this encounter Visit Diagnoses Not on filedocumented in this encounter Care Teams Light Bulb Replacer Relationship Specialty Start Date End Date Aniyah Schulte FNP PCP - General Family Medicine 11/29/21 05/13/23 Maria Beckham MD [address] [place] [address] PCP - General Internal Medicine 05/14/23 05/03/24 Daisy Clark NP [address] [place] [address] PCP - General Family Medicine 05/04/24 08/25/24 Urszula Muñiz FNP [address] [place] [address] PCP - General Family Medicine 08/26/24 documented as of this encounter
--- OUTSIDE RECORDS SUMMARY | 2024-09-07 12:50 | XMS_ITS | Encounter Summary ---
Author Organization [employer] Address [address] [facility] [address] 7t [place] [address] Care Team Providers Care Spot Sprayer Name Role Phone Daisy Clark SECOND HELPER Primary Care Provider [phone] Urszula Muñiz RIB KNITTER Primary Care Provider [phone] Reason for Visit * Reason Comments Med Refill Encounter Details Date Type Department Care Team (Late st Contact Info) Description 07/08/2024 Refill [facility] [address] [place] [address] Liliana Teague FNP Social History Tobacco Use Types Packs/Day [...] encounter Miscellaneous Notes * Telephone Encounter - Daisy Clark NP - 07/11/2024 4:55 PM EST Patient has not been seen in almost 1 year and last documented BP contraindicates use of this medication. Needs to be seen before fill documented in this encounter Plan of Treatment Upcoming Encounters Date Type Department Care Team (Late st Contact Info) Description 09/14/2024 10:00 AM EST Office Visit [facility] MEDICINE [address] [place] [address] Urszula Muñiz FNP [address] [place] [address] documented as of this encounter Visit Diagnoses Not on filedocumented in this encounter Additional Health Concerns Assessment Noted Time PHQ-9 Depression Total Score: 6 02/10/20 23 3:31 PM EDT documented as of this encounter Care Teams Spot Sprayer Relationship Specialty Start Date End Date Daisy Clark NP [address] [place] [address] PCP - General Family Medicine 05/04/24 08/25/24 Urszula Muñiz FNP [address] [place] [address] PCP - General Family Medicine 08/26/24 documented as of this encounter
--- OUTSIDE RECORDS SUMMARY | 2024-09-07 12:50 | XMS_ITS | Clinical Summary ---
Author Organization [employer] Address [address] [facility] 7t [place] [address] Care Team Providers Care Roof Assembler Name Role Phone Urszula Muñiz WEIGH BOX TENDER Primary Care Provider [phone] Allergies No known active allergies Medications Blood Pressure Monitoring (Omron 3 Series BP Monitor) device USE TO CHECK BLOOD PRESSURE DAILY. CALL THE CLINIC IF SYSTOLIC > 170 OR DIASTOLIC > 100 11/30/19 22 Active ibuprofen 800 MG tabletIndicatio ns:Pain TAKE 1 TABLET BY MOUTH EVERY 8 HOURS NEEDED FOR MILD PAIN 270 tablet 1 01/20/20 23 Active cetirizine (ZyrTEC) 10 MG tabletIndicatio ns:Seasonal allergic rhinitis, unspecified trigger Take 1 tablet (10 mg) by mouth Once per day. 90 tablet 1 03/14/20 24 Active buPROPion XL (Wellbutrin XL) 300 MG 24 hr tablet TAKE 1 TABLET BY MOUTH IN THE MORNING . DO NOT CRUSH, CHEW, OR SPLIT 90 tablet 06/06/20 24 Active NIFEdipine XL (Procardia XL) 30 MG 24 hr tabletIndicatio ns:Essential hypertension TAKE 1 TABLET (30 MG) BY MOUTH IN THE MORNING 90 tablet 06/09/20 24 Active acetaminophen (Tylenol 8 Hour) 650 MG ER tabletIndicatio ns:Right flank pain TAKE 2 TABLETS BY MOUTH EVERY 8 HRS IF NEEDED FOR MODERATE PAIN. DO NOT CRUSH, CHEW, OR SPLIT. OTC 120 tablet 1 08/26/19 25 Active hydroCHLOROthia zide (HYDRODiuril) 25 MG tabletIndicatio ns:Essential hypertension TAKE 2 TABLETS BY MOUTH EVERY MORNING 180 tablet 08/26/19 25 Active hydrOXYzine HCl (Atarax) 50 MG tabletIndicatio ns:Anxiety TAKE 1 TABLET BY MOUTH IF NEEDED IN THE MORNING, AT NOON, AND AT BEDTIME FOR ANXIETY. 270 tablet 08/26/19 25 Active escitalopram (Lexapro) 10 MG tabletIndicatio ns:Moderate episode of recurrent major depressive disorder (CMS/HCC) TAKE 1 TABLET BY MOUTH EVERY DAY IN THE MORNING 30 tablet 2 08/31/19 25 Active benzoyl peroxide (PanOxyl Foaming Wash) 10 % external wash Wash body daily in the shower 142 g 1 09/07/19 25 Active Vit-Fe Fumarate-FA ([facility] ) 27-0.8 MG tabletIndicatio ns:Encounter for fertility planning TAKE 1 TABLET BY MOUTH EVERY DAY IN THE MORNING 90 tablet 1 01/22/20 23 025 Discontinued(T herapy completed) triamcinolone (Kenalog) 0.1 % creamIndication s:Rash APPLY TOPICALLY IF NEEDED IN THE MORNING AND AT BEDTIME FOR RASH (UMBILICAL). 30 g 04/08/20 23 025 Discontinued(T herapy completed) cyclobenzaprine (Flexeril) 10 MG tablet One tab po at bedtime prn pain of muscles, do not drive with medicaion 30 tablet 06/12/20 23 025 Discontinued(T herapy completed) albuterol 108 (90 Base) MCG/ACT inhaler Inhale 2 puffs every 4 (four) hours if needed for wheezing. 18 g 3 06/30/20 23 025 Discontinued(T herapy completed) oxymetazoline (Afrin Nasal Leisenring) 0.05 % nasal spray Administer 2 sprays into each nostril every 12 (twelve) hours if needed for congestion for up to 2 days. Do not use for more than 3 days. 30 mL 07/14/20 23 025 Discontinued(S rakan effects) acetaminophen (Tylenol 8 Hour) 650 MG ER tabletIndicatio ns:Right flank pain TAKE 2 TABLETS BY MOUTH EVERY 8 HRS IF NEEDED FOR MODERATE PAIN. DO NOT CRUSH, CHEW, OR SPLIT. OTC 120 tablet 1 03/14/20 24 025 Discontinued(R eorder (will not trigger notification to Pharmacy)) clotrimazole (Lotrimin) 1 % cream Apply topically 2 times daily. 30 g 03/14/20 24 025 Discontinued(R eorder (will not trigger notification to Pharmacy)) hydroCHLOROthia zide (HYDRODiuril) 25 MG tabletIndicatio ns:Essential hypertension TAKE 2 TABLETS BY MOUTH EVERY MORNING 180 tablet 06/06/20 24 025 Discontinued(R eorder (will not trigger notification to Pharmacy)) hydrOXYzine HCl (Atarax) 50 MG tabletIndicatio ns:Anxiety TAKE 1 TABLET BY MOUTH IF NEEDED IN THE MORNING, AT NOON, AND AT BEDTIME FOR ANXIETY. 270 tablet 06/06/20 24 025 Discontinued(R eorder (will not trigger notification to Pharmacy)) escitalopram (Lexapro) 10 MG tabletIndicatio ns:Moderate episode of recurrent major depressive disorder (CMS/HCC) TAKE 1 TABLET BY MOUTH EVERY MORNING 30 tablet 2 06/06/20 24 025 Discontinued clotrimazole (Lotrimin) 1 % cream Apply topically 2 times daily. 30 g 08/26/19 25 025 Discontinued(T herapy completed) Active Problems Problem Noted Date Diagnosed Date Depression 07/26/2024 H/O nephrolithotomy with removal of calculi 12/09 Overview (12/29/2022): 01/12/22 - presented [facility] ED for left-sided flank pain, described as severe stabbing discomfort. Hx of Right ureteroscopy with lithotripsy & stent placement in 2020 (?). U/a in hospital positive for UTI. CT abdomen/pelvis showed nephrolithiasis w/ new mild left-sided obstructive uropathy secondary to proximal left ureteral stone when compared to 202001/13/22 - Admitted yesterday, Surgery performed today with left ureteral stent placed, infected urine drained. 01/14/22 - discharged to home with left ureteral stent in place, on Bactrim DS PO. Pt instructed to f/u with urology in 2-3 weeks. Lower urinary tract symptoms (LUTS) 12/16/2022 Assessment & Plan (05/14/2023 2:05 PM EDT): Encouraged pt to bring FMLA paperwork downstairs Intermittent for recurrent kidney infections and nephrolithaisis F/u PRN Assessment & Plan (12/16/2022 6:45 PM EDT): It seems to be sec to UTI. Rx Bactrim DX bid x 5d Order UxCx Increases water intake Candidiasis of perineum 12/16/2022 Assessment & Plan (12/16/2022 6:46 PM EDT): On lower abd to perineum. Counseled to keep area clean and dry Use clotrimazole bid x 10d + Desitin paste Essential hypertension 08/08/2022 Overview (05/14/2023): Pt was switched from previous BP med to Nifedipine 30mg since she is seeking . + hydrochlorothiazide 12.5 mg daily Had higher dose accidentally prescribed, nifedipine 60 mg daily. Caused headaches, fatigue Decreased dose back to Nifedipine 30 mg Reports takes hydrochlorothiazide and nifedipine daily, BP still consistently elevated Today 05/01/23 153/111 BP Labs at hospital show no signs of kidney function decline BP at home 150-160s/70-80s Assessment & Plan (05/14/2023 2:07 PM EDT): BP elevated today 153/111 Recheck by LALA 130/96 Asymptomatic today Will increase hydrochlorothiazide dose to 25 mg daily 1 tab daily x 7 days. Then if BP readings still > 130/80. May take hydrochlorothiazide 2 tabs (50 mg) daily Continue Nifedipine 30 mg Will refer to Nephrology for further eval of Secondary hypertension/resistent HTN ED precautions: severe QUILES, chest pain, SOB, BP > 180/100 or < 90/60, dizziness, syncope, unilateral weakness Encouraged diet and exercise F/u 1-2 months with new PCP Assessment & Plan (02/09/2023 4:53 PM EDT): BP elevated today 156/101 Forgot to take medication today Reports she has been struggling to remember since school is out and her schedule changed Assoc chest pain, EKG WNL Will take meds pippa after visit Strict ED precautions given for chest pain, SOB, syncope Followup 1-2 months or sooner PRN Assessment & Plan (12/16/2022 6:47 PM EDT): Mildly elevated today, likely related to UTI. FU w PCP> No change on meds Anxiety 12/01/2021 Overview (02/09/2023): Continue Hydroxyzine 25mg TID for anxiety and Wellbutrin 300mg daily Assessment & Plan (02/09/2023 4:56 PM EDT): Continue meds Monitor for chest pain Followup PRN Depressive disorder 12/01/2021 Seasonal allergic rhinitis 12/01/2021 PTSD (post-traumatic stress disorder) 10/09/2016 RLS (restless legs syndrome) 01/02/2016 Nephrolithiasis 09/20/2014 Morbid obesity 08/19/2014 Encounters Date Type Department Care Team Description 09/07/2024 9:15 AM EST Office Visit [facility] [address] [place] [address] Urszula Muñiz FNP Well adult health check (Primary Dx); Hypertension, unspecified type; Unprotected sexual intercourse 09/07/2024 Travel 09/06/2024 Refill [facility] [address] [place] [address] Daisy Clark NP Essential hypertension 09/02/2024 Refill [facility] [address] [place] [address] Daisy Clark NP Essential hypertension; Anxiety 09/01/2024 Telephone [facility] [address] [place] [address] Manasa Tapia MA Chart Prep 09/01/2024 Refill [facility] [address] [place] [address] Urszula Muñiz FNP 08/29/2024 Refill [facility] [address] [place] [address] Daisy Clark NP Moderate episode of recurrent major depressive disorder (CMS/HCC) 08/25/2024 Refill [facility] [address] [place] [address] Daisy Clark NP Right flank pain; Essential hypertension; Anxiety 07/08/2024 Refill [facility] [address] [place] [address] Liliana Teague FNP 06/17/2024 Telephone [facility] [address] [place] [phone] Daisy Clark NP No Show 06/16/2024 Telephone [facility] [address] [place] [phone] Aric Jennings MA Chartprep 06/10/2024 Patient Outreach [facility] MED & PEDS [address] [place] [address] Daisy Clark NP Pre-visit Planning (SDOH unable to reach, Number disconnected) 06/09/2024 Refill [facility] [address] [place] [address] Maria Beckham MD Essential hypertension from Last 3 Months Immunizations Name Administration Dates Next Due Influenza injectable quadriv alent preservative free 06/12/2021 Rabies, intramuscular 12/26/2016, 017,12/15/2016,12/12 Tdap 05/19/2014 Family History Medical History Relation Name Comments Diabetes Father Hypertension Father Hypertension Father's Brother Hypothyroidism Father's Brother Schizophrenia Father's Brother Breast cancer Father's Sister Diabetes Maternal Grandfather Hypertension Maternal Grandfather Dementia Maternal Grandmother Anxiety disorder Mother Bipolar disorder Mother Depression Mother Diabetes Mother Heart disease Mother Hypertension Mother Schizophrenia Mother Bipolar disorder Mother's Brother Schizophrenia Mother's Brother Hypertension Mother's Sister Migraines Mother's Sister Lupus Sister Relation Name Status Comments Father Father's Brother Father's Sister Maternal Grandfather Maternal Grandmother Mother Mother's Brother Mother's Sister Sister Social History Tobacco Use Types Packs/Day Years [...] Orientation Straight 06/09/2022 10 :40 AM EDT Last Filed Vital Signs Vital Sign Reading [...] Mass Index 44.14 09/07/2024 9:07 AM EST Plan of Treatment Upcoming Encounters Date Type Department Care Team (Late st Contact Info) Description 09/14/2024 10:00 AM EST Office Visit [facility] [address] [place] [address] Sebas Muñizupe, WEIGH BOX TENDER [address] [place], [place] [phone] Health Maintenance Due Date Last Done Comments Alcohol/Substance Use Screening 2000 Family Planning (PISQ) 12/31/2002 Hepatitis C Screening 12/31/2005 Hepatitis B Vaccines (1 of 3 - 19+ 3-dose series) 12/31/2006 Pneumococcal Vaccine: Pediatrics (0 to 5 Years) and At-Risk Patients (6 to 49) Years) (1 of 2 - PCV) 12/31/2006 Pap Smear 12/31/2008 Cervical Cancer Screening 12/31/2017 HPV/Cotest 12/31/2017 SDOH Screening 02/10/2024 02/09/2023 COVID-19 Vaccine (4 - 2023-2 5 season) 2024 07/21/2021, 09/11/2020, 08/14/2020 Influenza Vaccine (#1) 2024 , 04/19/2014 DTaP/Tdap/Td Vaccines (2 - T d or Tdap) 05/19/2024 05/19/2014 Depression Screening 09/07/2025 09/07/2024, 09/07/2024 Tobacco Screening 09/07/2025 09/07/2024 Lipid Panel 11/29/2026 09/07/2024, 11/29/2021 Zoster Vaccines (1 of 2) 12/31/2037 RSV Patients and Patients Aged 60 years or older (1 - 1-dose 75+ series) 12/31/2062 HIV Screening Completed 11/29/2021 HIB Vaccines Aged Out No longer eligi ble based on patient's age to complete this topic HPV Vaccines Aged Out No longer eligi ble based on patient's age to complete this topic Hepatitis A Vaccines Aged Out No long er eligible based on patient's age to complete this topic IPV Vaccines Aged Out No longer eligi ble based on patient's age to complete this topic Meningococcal Vaccine Aged Out No miranda mary eligible based on patient's age to complete this topic RSV under 20 months Aged Out No longe r eligible based on patient's age to complete this topic Rotavirus Vaccines Aged Out No longer eligible based on patient's age to complete this topic Procedures Procedure Name Priority Date/Time Associated Diagnosis Comments POCT , URINE Routine 09/07/2024 11:15 AM EST Unprotected sexual intercourse POCT URINALYSIS DIPSTICK Routine 09/07/2024 11:11 AM EST Hypertension, unspecified type HEMOGLOBIN A1C Routine 09/07/2024 10:46 AM EST Well adult health check BASIC METABOLIC PANEL Routine 09/07/2024 10:46 AM EST Well adult health check LIPID PANEL, STANDARD Routine 09/07/2024 10:46 AM EST Well adult health check CBC WITH AUTO DIFFERENTIAL Routine 09/07/2024 10:46 AM EST Well adult health check HIV 1/2 ANTIGEN/ANTIBODY, FOURTH GENERATION W/RFL Routine 11/29/2021 11:01 AM EDT from Last 3 Months or Most Recently Relevant to Health Maintenance Results * POCT Urine (09/07/2024 11:15 AM EST) Preg Test, Ur Negative Negative, Indeterminate, None Detected, Invalid, Specimen unsatisfactory for evaluation, Weakly Positive QC Media Lot # [id number] Lot# Expiration Date [id number] Urine 09/07/2024 11:1 5 AM [facility] ENTER/EDIT ORDERABLES [...] Urine 09/07/2024 11:1 1 AM EST Urszula Muiñz WEIGH BOX TENDER POINT OF CARE TEST ENTER/EDIT ORDERABLES Final Result * (ABNORMAL) CBC auto differential (09/07/2024 10:46 AM EST) White Blood Count 7.1 4.8 - 10.8 X10*3/uL [facility] Red Blood Count 4.83 4.20 - 5.50 X10*6/uL [facility] Hemoglobin 12.7 12.0 - 16.0 g/dl [facility] Hematocrit 39.6 37.0 - 47.0 % [facility] Mean Corpuscular Volume 82.0 80.0 - 98.0 fL [facility] Mean Corpuscular Hemoglobin 26.3(L) 27.0 - 33.0 pg [facility] Mean Corpuscular HGB Conc 32.1 31.0 - 35.0 g/dl [facility] Red Cell Distribution Width 15.5 11.0 - 16.0 % [facility] Platelet Count 425(H) 160 - 400 X10*3/uL [facility] Mean Platelet Volume 9.5 9.4 - 12.3 fL [facility] Neutrophils Percent Auto 56.3 45 - 73 % [facility] Imm Gran Pct Auto 0.3 0.0 - 0.4 % [facility] Lymphocytes Percent Auto 35.6 20 - 40 % [facility] Monocytes Percent Auto 5.6 2 - 11 % [facility] Eosinophils Percent Auto 1.8 0 - 4 % [facility] Basophils Percent Auto 0.4 0 - 2 % [facility] NRBC Pct Auto 0.0 0.0 - 0.2 /100WBC [facility] Neutrophils Absolute Auto 4.0 2.0 - 8.3 x10*3/uL [facility] Imm Gran Abs Auto 0.02 0.00 - 0.03 X10*3/uL [facility] Lymphocytes Absolute Auto 2.5 1.2 - 4.9 X10*3/uL [facility] Monocytes Absolute Auto 0.4 0.1 - 1.2 X10*3/uL [facility] Eosinophils Absolute Auto 0.1 0.0 - 0.4 X10*3/uL [facility] Basophils Absolute Auto 0.0 0.0 - 0.2 X10*3/uL [facility] NRBC Abs Auto 0.000 0.0 - 0.012 X10*3/uL [facility] Blood Venous blood specimen / Unknown 09/07/2024 10:46 AM EST 09/07/2024 11:25 AM EST Urszula FabriQate [facility] BLOOD ORDERABLES Final Res ult Performing Organization Address [facility]/ZIP Co de Phone Number [facility] [address] [place] [phone] * Hemoglobin A1c (09/07/2024 10:46 AM EST) Hemoglobin A1c 4.7 <6.0 % [facility] Comment:Hemoglobin A1C Refer ence Range Adults: 4.8 - 6.0 % Non diabetic: < 6.0 % Goal: < 7.0 %Additional Action Suggested: > 8.0 %Note: Hemoglobin A1c results are invalid for patients with abnormal amounts of HbF. Blood transfusions may impact the HbA1c concentration in the patient sample. Estimated Average Glucose 88 mg/dL [facility] Comment:eAG = Estimated ave rage glucose which is %A1C expressed asaverage glucose, using the formula of the W5Y-WoarmilVdenlpg Glucose study (ADAG), Diabetes Care, Vol.31,#8,2007 Blood Venous blood specimen / Unknown 09/07/2024 10:46 AM EST 09/07/2024 11:25 AM EST us UrszulaTaggstr WEIGH BOX TENDER LAB BLOOD ORDERABLES Final Res ult Performing Organization Address [facility]/ZIP Co de Phone Number [facility] [address] [place] [phone] * HIV 1/2 ANTIGEN/ANTIBODY,FOURTH GENERATION W/RFL (11/29/2021 11:01 AM EDT) Pathologist [facility] HIV-1/2 ANTIGEN AND ANTIBODIES, 4TH GENERATION W/ REFLEX NON-REACT JACKELINE NON-REACT JACKELINE [facility] Comment: HIV-1 antigen and HIV-1/HIV-2 antibodies were not detected. There is no laboratory evidence of HIV infection. ?? PLEASE NOTE: This information has been disclosed to you from records whose confidentiality may be protected by state law. ??If your state requires such protection, then the state law prohibits you from making any further disclosure of the information without the specific written consent of the person to whom it pertains, or as otherwise permitted by law. A general authorization for the release of medical or other information is NOT sufficient for this purpose. ? For additional information please refer to http://education.[employer]/faq/PFT016 (This link is being provided for informational/ educational purposes only.) ? The performance of this assay has not been clinically validated in patients less than 2 years old. ?? 11/29/2021 11:0 1 AM EDT Aniyah Schulte [facility] BLOOD ORDERABLES Final Result [facility] [address] from Last 3 Months or Most Recently Relevant to Health Maintenance Insurance [facility] C3 Care Teams Roof Assembler Relationship Specialty Start Date End Date Urszula Muñiz FNP [address] [place] [phone] PCP - General Family Medicine 08/26/24
--- OUTSIDE RECORDS SUMMARY | 2024-09-07 12:50 | XMS_ITS | Encounter Summary ---
Author Organization [employer] Address [address] [facility] [address] [place] [address] Care Team Providers Care Clinical Documentation Nurse Name Role Phone Urszula Muñiz HELICOPTER MECHANIC Primary Care Provider [phone] Reason for Visit * Reason Comments Med Refill Encounter Details Date Type Department Care Team (Late st Contact Info) Description 09/06/2024 Refill [facility] [address] [place], [place] [phone] Daisy Clark NP [address] [place] [address] Essential hypertension Social History Tobacco Use Types Packs/Day Years [...] Description 09/14/2024 10:00 AM EST Office Visit [facility] MEDICINE [address] [place] [address] Urszula Muñiz FNP [address] [place] [address] documented as of this encounter Visit Diagnoses Diagnosis Essential hypertension Unspecified essential hypertension documented in this encounter Additional Health Concerns Assessment Noted Time PHQ-9 Depression Total Score: 6 02/10/20 23 3:31 PM EDT documented as of this encounter Care Teams Clinical Documentation Nurse Relationship Specialty Start Date End Date Urszula Muñiz FNP [address] [place] [address] PCP - General Family Medicine 08/26/24 documented as of this encounter
--- OUTSIDE RECORDS SUMMARY | 2024-09-07 12:50 | XMS_ITS | Encounter Summary ---
Author Organization [employer] Address [address] [place] [address] Care Team Providers Care Breaker Mechanic Name Role Phone Aniyah Schulte Primary Care Provider [phone] Maria Beckham MD Primary Care Pro vider Daisy Clark NP Primary Care Provider [phone] Urszula Muñiz CYBER FORENSIC SPECIALIST Primary Care Provider [phone] Reason for Visit * Reason Onset Date Comments triage 08/22/2022 Encounter Details Date Type Department Care Team (Late st Contact Info) Description 08/22/2022 Telephone [facility] [address] [place] [address] Aniyah Schulte [address] [place] [address] triage Social History Tobacco Use Types Packs/Day Years [...] suspected to have Coronavirus/COVID-19? No / Unsure 08/22/2022 2:12 PM EST documented as of this encounter Miscellaneous Notes * Telephone Encounter - Amina Bettencourt RN - 08/22/2022 2:15 PM EST Triage call Pt already in [facility]. * Telephone Encounter - Jourdan Armando - 08/22/2022 12:05 PM EST Symptoms: Earache, Nose Pain, Sore Throat, Sinus Symptoms Outcome: Schedule an urgent appointment (within 1 hour) or talk to a nurse or provider soon Reason: Severe pain now The caller accepted this outcome documented in this encounter Plan of Treatment Upcoming Encounters Date Type Department Care Team (Late st Contact Info) Description 09/14/2024 10:00 AM EST Office Visit [facility] MEDICINE [address] [place] [phone] Urszula Muñiz FNP [address] [place] [address] documented as of this encounter Visit Diagnoses Not on filedocumented in this encounter Care Teams Breaker Mechanic Relationship Specialty Start Date End Date Aniyah Schulte FNP PCP - General Family Medicine 11/29/21 05/13/23 Maria Beckham MD [address] [place] [phone] PCP - General Internal Medicine 05/14/23 05/03/24 Daisy Clark NP [address] [place] [phone] PCP - General Family Medicine 05/04/24 08/25/24 Urzsula Muñiz FNP [address] [place] [phone] PCP - General Family Medicine 08/26/24 documented as of this encounter
--- OUTSIDE RECORDS SUMMARY | 2024-09-07 12:50 | XMS_ITS | Encounter Summary ---
Author Organization [employer] Address [address] [facility] [address] [place] [address] Care Team Providers Care Headlight Adjuster Name Role Phone Urszula Muñiz INTAKE ASSESSOR Primary Care Provider [phone] Reason for Visit * Reason Comments Med Refill Encounter Details Date Type Department Care Team (Late st Contact Info) Description 09/02/2024 Refill [facility] MED[facility] [address] [place], [place] [phone] Daisy Clark NP [address] [place], [place] [phone] Essential hypertension; Anxiety Social History Tobacco Use [...] t he electric, gas, oil or water [employer] threatened to shut off services in your [...] [facility] [address] [place] [address] Urszula Muñiz FNP [address] [place] [address] documented as of this encounter Visit Diagnoses Diagnosis Essential hypertension Unspecified essential hypertension Anxiety Anxiety state, unspecified documented in this encounter Additional Health Concerns Assessment Noted Time PHQ-9 Depression Total Score: 6 02/10/20 23 3:31 PM EDT documented as of this encounter Care Teams Headlight Adjuster Relationship Specialty Start Date End Date Urszula Muñiz FNP [address] [place] [address] PCP - General Family Medicine 08/26/24 documented as of this encounter
--- OUTSIDE RECORDS SUMMARY | 2024-09-07 12:50 | XMS_ITS | Encounter Summary ---
Author Organization [employer] Address [address] [facility] 7t [place] [address] Care Team Providers Care Tea Tree Farm Worker Name Role Phone Maria Beckham MD Primary Care Pro vider Daisy Clark SCRUM COACH Primary Care Provider [phone] Urszula MuñizP Primary Care Provider [phone] Reason for Visit * Reason Comments Med Refill Encounter Details Date Type Department Care Team (Late st Contact Info) Description 04/24/2024 Refill [facility] [address] [place] [address] Maria Beckham MD [address] [place] [address] Social History Tobacco Use Types Packs/Day Years [...] encounter Miscellaneous Notes * Telephone Encounter - Maria Portillo MD - 05/04/2024 12:34 AM EDT Not able to contact pt * Telephone Encounter - Lorraine Krishnamurthy RN - 04/28/2024 9:17 AM EDT Third call. No answer and no option for v/m. Will send letter to address on file. * Telephone Encounter - Lorraine Krishnamurthy RN - 04/27/2024 10:45 AM EDT Second t/c placed to pt. Received same message as below. Will retask for final attempt tomorrow. * Telephone Encounter - Lorraine Krishnamurthy RN - 04/26/2024 11:38 AM EDT Telephone call placed to pt. No answer. Phone states, cannot accept calls at this time with no option for v/m. Will retask to call again tomorrow if no returned call. Please can you check w pt type of rash that she is requesting antifungal cream ? Mdnicole should not beused chronically please clarify w pt , I will ask [place] to help pt schedule apt to start care w me thanks documented in this encounter Plan of Treatment Upcoming Encounters Date Type Department Care Team (Late st Contact Info) Description 09/14/2024 10:00 AM EST Office Visit [facility] [address] [place] [address] Urszula Muñiz FNP [address] [place] [address] documented as of this encounter Visit Diagnoses Not on filedocumented in this encounter Additional Health Concerns Assessment Noted Time PHQ-9 Depression Total Score: 6 02/10/20 23 3:31 PM EDT documented as of this encounter Care Teams Tea Tree Farm Worker Relationship Specialty Start Date End Date Maria Beckham MD [address] [place] [id number] PCP - General Internal Medicine 05/14/23 05/03/24 Daisy Clark NP [address] [place] [address] PCP - General Family Medicine 05/04/24 08/25/24 Urszula Muñiz FNP [address] [place] [phone] PCP - General Family Medicine 08/26/24 documented as of this encounter
--- OUTSIDE RECORDS SUMMARY | 2024-09-07 12:50 | XMS_ITS | Encounter Summary ---
Author Organization [employer] Address [address] [facility] [address] [place] [address] Care Team Providers Care Helper Chicken Farm Name Role Phone Maria Beckham MD Primary Care Pro vider Daisy Clark CLIENT PORTFOLIO MANAGER Primary Care Provider [phone] Urszula Muñiz OVERHEAD CLEANER Primary Care Provider [phone] Reason for Visit * Reason Comments Med Refill Encounter Details Date Type Department Care Team (Late st Contact Info) Description 11/19/2023 Refill [facility] [address] [place] [address] Maria Beckham MD [address] [place] [address] Moderate episode of recurrent major depressive disorder [...] EST Office Visit [facility] [address] [place] [address] Urszula Muñiz FNP [address] [place] [address] documented as of this encounter Visit Diagnoses Diagnosis Moderate episode of recurrent major depressive disorder (CMS/HCC) documented in this encounter Additional Health Concerns Assessment Noted Time PHQ-9 Depression Total Score: 6 02/10/20 23 3:31 PM EDT documented as of this encounter Care Teams Helper Chicken Farm Relationship Specialty Start Date End Date Maria Beckham MD [address] [place] [address] PCP - General Internal Medicine 05/14/23 05/03/24 Daisy Clark NP [address] [place] [address] PCP - General Family Medicine 05/04/24 08/25/24 Urszula Muñiz FNP [address] [place] [address] PCP - General Family Medicine 08/26/24 documented as of this encounter
--- OUTSIDE RECORDS SUMMARY | 2024-09-07 12:50 | XMS_ITS | Encounter Summary ---
Author Organization [email or web address] Address [address] [facility] 7t [place] [address] Care Team Providers Care Horse Race Timer Name Role Phone Aniyah Schulte COAL AND ASH SUPERVISOR Primary Care Provider [phone] Maria Beckham MD Primary Care Pro vider Daisy Clark NP Primary Care Provider +- Urszula Muñiz COAL AND ASH SUPERVISOR Primary Care Provider [phone] Encounter Details Date Type Department Care Team (Late Contact Info) Description 11/11/2022 Orders Only [facility] [address] [place] [address] Ara Batista LPN Social History Tobacco Use [...] Description 09/14/2024 10:00 AM EST Office Visit [facility] [address] [place] [address] Urszula Muñiz FNP [address] [place] [address] documented as of this encounter Visit Diagnoses Not on filedocumented in this encounter Care Teams Horse Race Timer Relationship Specialty Start Date End Date Aniyah Schulte FNP PCP - General Family Medicine 11/29/21 05/13/23 Maria Beckham MD [address] [place] [address] PCP - General Internal Medicine 05/14/23 05/03/24 Daisy Clark NP [address] [place] [address] PCP - General Family Medicine 05/04/24 08/25/24 Urszula Muñiz FNP [address] [place] [address] PCP - General Family Medicine 08/26/24 documented as of this encounter
--- OUTSIDE RECORDS SUMMARY | 2024-09-07 12:50 | XMS_ITS | Encounter Summary ---
Author Organization [employer] Address [address] [facility] 7t [place] [address] Care Team Providers Care Hospital Superintendent Name Role Phone Aniyah Schulte NUTRITION SERVICES AIDE Primary Care Provider [phone]- [phone] Maria Beckham MD Primary Care Pro vider Daisy Clark NP Primary Care Provider [phone] Urszula Muñiz NUTRITION SERVICES AIDE Primary Care Provider [phone] Encounter Details Date Type Department Care Team (Late Contact Info) Description 07/28/2022 Orders Only [facility] [address] [place] [address] Charlotte Gonzalez LPN Social History Tobacco Use Types Packs/Day [...] Description 09/14/2024 10:00 AM EST Office Visit [facility] [address] [place] [address] Urszula Muñiz FNP [address] [place], [place] [phone] documented as of this encounter Visit Diagnoses Not on filedocumented in this encounter Care Teams Hospital Superintendent Relationship Specialty Start Date End Date Aniyah Schulte FNP PCP - General Family Medicine 11/29/21 05/13/23 Maria Beckham MD [address] [place] [address] PCP - General Internal Medicine 05/14/23 05/03/24 Daisy Clark NP [address] [place] [address] PCP - General Family Medicine 05/04/24 08/25/24 Urszula Muñiz FNP [address] [place] [address] [id number] PCP - General Family Medicine 08/26/24 documented as of this encounter
--- OUTSIDE RECORDS SUMMARY | 2024-09-07 12:50 | XMS_ITS | Encounter Summary ---
Author Organization [employer] Address [address] [facility] 7t [place] [address] Care Team Providers Care Overlock Collar Setter Name Role Phone Sebas Muñizupe ASSISTANT TO THE DEAN Primary Care Provider [phone] Reason for Visit * Reason Onset Date Comments Med Refill 09/01/2024 Encounter Details Date Type Department Care Team (Late st Contact Info) Description 09/01/2024 Refill [facility] [address] [place] [address] Urszula Muñiz FNP [address] [place] [address] Social History Tobacco Use Types Packs/Day Years [...] encounter Miscellaneous Notes * Telephone Encounter - Ara Batista LPN - 09/01/2024 1:32 PM EST Expected 09/07/24. * Telephone Encounter - Jessica Weston - 09/01/2024 1:24 PM EST TC from pt requesting medication refill. Medications needing refill : buPROPion XL (Wellbutrin XL) 300 MG 24 hr tablet To be sent to: [facility]/pharmacy [address] [place] [address] documented in this encounter Plan of Treatment Upcoming Encounters Date Type Department Care Team (Late st Contact Info) Description 09/14/2024 10:00 AM EST Office Visit [facility] [address] [place] [address] Urszula Muñiz FNP [address] [place] [address] documented as of this encounter Visit Diagnoses Not on filedocumented in this encounter Additional Health Concerns Assessment Noted Time PHQ-9 Depression Total Score: 6 02/10/20 23 3:31 PM EDT documented as of this encounter Care Teams Overlock Collar Setter Relationship Specialty Start Date End Date Urszula Muñiz FNP [address] [place] [address] PCP - General Family Medicine 08/26/24 documented as of this encounter
--- OUTSIDE RECORDS SUMMARY | 2024-09-07 12:50 | XMS_ITS | Clinical Summary ---
Author Organization [facility] ity Address [address] [place] [address] Care Team Providers Care Driver/Guide Name Role Phone Angélica Olmedo MD Primary Care Provider [phone] Allergies Active Allergy Reactions Criticality Noted Date Comments Other 07/11/2016 Medications Medication Sig Dispensed Refills Start Date End Date Status cetirizine (ZyrTEC) 10 mg tablet TAKE 1 TABLET BY MOUTH EVERY DAY 02/24/2017 Active gabapentin (NEURONTIN) 300 mg capsule Take 1 Cap by mouth 3 times daily. 12/12/2016 Active traZODone (DESYREL) 50 mg tablet 1-2 po qhs prn insomnia 03/03/2017 Active sertraline (ZOLOFT) 100 mg tablet 1 and 1/2 po qam 03/04/2017 Activ e Active Problems Problem Noted Date Diagnosed Date Depression 07/26/2024 Hypertension 07/26/2024 PTSD (post-traumatic stress disorder) 10/09/2016 RLS (restless legs syndrome) 01/02/2016 Nephrolithiasis 09/20/2014 Morbid obesity 08/19/2014 Immunizations Name Administration Dates Next Due Influenza, Unspecified 04/19/2014 Rabies Vaccine, For Intramus cular Injection Retired Code 12/26/2016,12/19/2016,12/15/2016,12/12 Tdap Tetanus diptheria acell ular pertussis (Boostrix; Adacel) 7yo and older 05/19/2014 Medical History Medical History Date Comments Hypertension DX:Hypertension Depression DX:Depression Nephrolithiasis 09/20/2014 DX:Nephrolithias is Morbid obesity (CMS/HCC) DX:Morb id obesity (HCC) RLS (restless legs syndrome) DX: RLS (restless legs syndrome) Family History Medical History Relation Name Comments Hypertension Father Hypertension Mother asthma, thyroid disease Relation Name Status Comments Father Mother Social History Tobacco Use Types Packs/Day Years Used Date Smoking Tobacco: Every Day Cigarettes 0.3 18.2 Started: 06/20/2006 Alcohol Use Standard Drinks/Week Comments Yes 0 (1 standard drink = 0.6 oz pur e alcohol) Sex and Gender Information Value Date Recorded Sex Assigned at Not on file Gender Identity Not on file Sexual Orientation Not on file Obstetrics History Plan of Treatment Health Maintenance Due Date Last Done Comments Pneumococcal Vaccine: Pediat rics (0 to 5 Years) and At-Risk Patients (6 to 64 Years) (1 of 2 - PCV) 12/31/1993 Hepatitis B Vaccines (1 of 3 - 19+ 3-dose series) 12/31/2006 Cervical Cancer Screening: P ap Smear 12/31/2008 Cholesterol Screening (Lipid Panel) 07/23/2022 02/01/2016 HIV Screening 07/23/2022 Hepatitis C Screening 07/23/2022 Social Influencers of Health Screening 07/23/2022 Hypertension/CHF/CAD Annual BMP Blood Test 07/24/2022 02/01/2016 Depression Screening 02/10/2024 02/09/2023 COVID-19 Vaccine (1 - 2023-2 5 season) 2024 Influenza Vaccine (#1) 2024 04/19/2014 DTaP,Tdap,and Td Vaccines (2 - Td or Tdap) 05/19/2024 05/19/2014 HIB Vaccines Aged Out No longer eligi [...] on patient's age to complete this topic MMR Vaccines Aged Out No longer eligi ble based on patient's age to complete this topic Meningococcal ACWY Vaccine Aged Out N o longer eligible based on patient's age to complete this topic RSV Immunization Patients Un mona 20 months Aged Out No longer eligible b ased on patient's age to complete this topic Varicella Vaccines Aged Out No longer eligible based on patient's age to complete this topic Procedures Procedure Name Priority Date/Time Associated Diagnosis Comments ANNUAL BMP BLOOD TEST Routine 02/01/2016 LIPID PANEL Routine 02/01/2016 from Last 3 Months or Most Recently Relevant to Health Maintenance Results * Annual BMP Blood Test (02/01/2016) Annual BMP Blood Test abstracted Historical Provider [facility] E * (ABNORMAL) Lipid panel (02/01/2016) Pathologist [facility] LDL/HDL Ratio 4 0 - 4 Triglycerides 111 0 - 150 mg/dL Cholesterol 156 0 - 200 mg/dL HDL 35(A) 40 mg/dL LDL Cholesterol 99 0 - 100 mg/dL Blood Venous blood specimen / Unknown Historical Provider LAB BLOOD ORDERAB LES from Last 3 Months or Most Recently Relevant to Health Maintenance Care Teams Driver/Guide Relationship Specialty Start Date End Date Angélica Olmedo MD [address] [place] [address] PCP - General Internal Medicine 05/23/15
--- OUTSIDE RECORDS SUMMARY | 2024-09-07 12:50 | XMS_ITS | Encounter Summary ---
Author Organization [employer] Address [address] [facility] 7t [place] [address] Care Team Providers Care Dehydrator Operator Name Role Phone Urszula Muñiz WAD PRINTING MACHINE OPERATOR Primary Care Provider [phone] Reason for Visit * Reason Comments Med Refill Encounter Details Date Type Department Care Team (Late st Contact Info) Description 08/29/2024 Refill [facility] [address] [place], [place] [phone] Daisy Clark NP [address] [place], [place] [phone] Moderate episode of recurrent major depressive disorder [...] Description 09/14/2024 10:00 AM EST Office Visit [facility] [address] [place] [address] Urszula Muñiz FNP [address] [place] [address] documented as of this encounter Visit Diagnoses Diagnosis Moderate episode of recurrent major depressive disorder (CMS/HCC) documented in this encounter Additional Health Concerns Assessment Noted Time PHQ-9 Depression Total Score: 6 02/10/20 23 3:31 PM EDT documented as of this encounter Care Teams Dehydrator Operator Relationship Specialty Start Date End Date Urszula Muñiz FNP [address] [place] [address] PCP - General Family Medicine 08/26/24 documented as of this encounter
[2024-09-08 18:49] LABS: CT PCR NOT DETECTED (Not Detect.); NG PCR NOT DETECTED (Not Detect.)
== END 2024-09-07 10:45 | disposition home or self-care (01) ==
LOC: HO.HHCL 10:44
PROVIDERS: Visit Provider Nurse Practitioner Family
DX: Z00.00 Encounter for general adult medical examination without abnormal findings (principal); Z13.6 Encounter for screening for cardiovascular disorders; Z13.1 Encounter for screening for diabetes mellitus; Z20.2 Contact with and (suspected) exposure to infections with a predominantly sexual mode of transmission
CPT/HCPCS: 36415; 80048; 80061; 83036; 84443; 85025; 86704; 86706; 86803; 87340; 87491; 87591